=== PATIENT | female | born 1965 | race Caucasian/White ===

== ENCOUNTER → 2017-03-22 | Outpatient (CLI) | payer MEDICARE, OTHER ==
--- NOTE | 2017-03-22 11:11 | MM ---
Reason for exam: screening (asymptomatic). Baseline mammogram. History: Patient is postmenopausal. Physical Findings: Dr. Sutton did not find any significant physical abnormalities on exam. MG 3D Screening Mammo W/Cad Bilateral CC and MLO view(s) were taken. ML view(s) were taken of the left breast. The breast tissue is extremely dense which could obscure a lesion on mammography. Finding: There are indeterminate calcifications in the upper outer quadrant of the left breast. These results were verbally communicated with the patient and result sheet given to the patient on 03/22/17. ASSESSMENT: Suspicious, BI-RAD 4 RECOMMENDATION: Stereotactic core biopsy of the left breast. Called Dr. Sutton with mammographic findings and has scheduled an appointment for the patient for 04/20/17 at 9:[address] Angela. Biopsy scheduled 04/10/17 at 8:00. PRELIMINARY REPORT CALLED AND FAXED TO DR. ANGELA ON 03/22/17 AT 300/TMP.
--- NOTE | 2017-03-22 20:45 | WWHP ---
DATE OF DICTATION: 03/22/2017 CHIEF COMPLAINT: The patient is here for her routine gynecologic exam and mammogram. HISTORY OF PRESENT ILLNESS: This is a 51-year-old G0 with an LMP of 2015. The patient is here to establish with this office. She states her last Pap smear was probably in approximately 2009. It has been more than 7 years since her last mammogram. She states her periods were regular until age 32. She states she went 18 years with amenorrhea. Her periods resumed in approximately 2009, and they were somewhat irregular but they stopped in 2014. She denies any postmenopausal bleeding or periods since then. She has been having hot flashes for the past few years, but these seem to have improved. She saw her it auditor, who says she is considered menopausal. PAST MEDICAL HISTORY: 1. Hypoparathyroidism. 2. Chronic kidney disease. 3. Chronic hypertension. 4. Calcium deposits on the brain. 5. Eczema. 6. Rheumatoid arthritis. 7. COPD. 8. Seasonal allergies. 9. Depression. 10. Pre-diabetes. 11. She had a DVT and PE in 2000. MEDICATIONS: The patient does not know the exact doses of her medications. 1. Hydrochlorothiazide 1 daily. 2. Methotrexate 1 daily. 3. Nifedipine 1 daily. 4. Carvedilol b.i.d. 5. Effexor 1 daily. 6. Prozac 1 daily. 7. Xanax p.r.n. 8. Serevent daily. 9. Calcitriol daily. 10. Coumadin 1 daily. 11. Gabapentin q.i.d. 12. Celebrex b.i.d. ALLERGIES: MACROBID, which caused projectile vomiting and diarrhea. PAST SURGICAL HISTORY: 1. Ankle surgery. 2. Knee surgery. 3. Rotator cuff surgery. 4. Biopsy of the vocal cord which was benign. 5. Nasal septum surgery. 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 She did have Chlamydia in 2008, which was treated. She denies any other STDs. SOCIAL HISTORY: She admits to smoking 1 pack of cigarettes per day and has 0 to 6 alcoholic drinks per month. She previously used marijuana but denies any other drug use. She states she currently is no longer using marijuana. She is . She is currently not seeing anybody at this time. She has had 3 sexual partners in the last 2 years. She is considered disabled. FAMILY HISTORY: Diabetes in both parents. Heart disease in her father. Grandmother had bladder cancer. REVIEW OF SYSTEMS: She thinks she has gained about 20 pounds over the last year. She denies respiratory, cardiac or GI problems. PHYSICAL EXAM: Blood pressure 139/98. Height 5 feet 2 inches. Weight 218 pounds. Temperature 96.5. Pulse 99. This is a well-developed, heavyset white female who is alert and oriented x3, in no acute distress. HEENT is within normal limits. NECK: Supple without mass or thyromegaly. CHEST AND LUNGS: Inspiratory rhonchi scattered throughout and prolonged expiration consistent with POD. There are no discrete wheezes. HEART: Regular rate and rhythm. Breasts are without mass or discharge. Axillary exam is negative for adenopathy. BACK: Negative for CVA tenderness. ABDOMEN: Obese, soft, nontender, without palpable masses. PELVIC EXAM: External genitalia reveal mild atrophy without lesions. Cervix and vagina reveal mild atrophy without lesions. The cervix is nulliparous and somewhat stenotic. There is no evidence of prolapse. The uterus is midposition, nongravid size and nontender. There are no palpable adnexal masses or tenderness. Rectovaginal exam is negative for mass or tenderness and is negative for occult blood. EXTREMITIES: Nontender. IMPRESSION: 1. A 51-year-old menopausal female with normal gynecologic exam. 2. Multiple medical problems. PLAN: 1. Pap smear was performed. 2. Self breast examination was discussed. 3. Mammogram will be done today. 4. We have had a long discussion regarding STDs and STD prevention. I stressed the importance of limiting sexual partners and using condoms if she is sexually active. 5. GC and Chlamydia screening was obtained from the cervix. 6. Blood STD testing will be obtained. This will include HIV, RPR, hepatitis B surface antigen and hepatitis C antibody. 7. I have recommended that she try to quit smoking. 8. She will return in one year.
== END | disposition home or self-care (01) ==
LOC: WWCWWP 08:36
PROVIDERS: ATTEND Obstetrics & Gynecology
DX: Z12.31 Encounter for screening mammogram for malignant neoplasm of breast (principal)
CPT/HCPCS: 87491; 77063; G0202

== ENCOUNTER → 2017-04-11 | Outpatient (CLI) | payer MEDICARE, OTHER ==
--- NOTE | 2017-04-13 15:59 | PN ---
This is a 51-year-old female patient who is coming to see me in followup regarding her YUNIEL treatment. The patient was diagnosed having severe YUNIEL with an AHI of 62.9, and she also demonstrated severe nocturnal oxygen desaturation. The patient suffers from chronic hypersomnia and sleepiness. Based on that, the patient was given an AutoCPAP unit with a minimum pressure of 10, maximum pressure of 18, with an EPR of 3, along with a small-sized Simplus full-face mask. On today's followup, the patient reports marked improvement in her sleep quality. She tells me that she is unable to sleep without her CPAP machine at all. Unfortunately recently she was on a trip to [place] and she was staying with some friends and she did not a spot where she could put her CPAP, and her compliancy data has gotten worse since then. Clinically she also became much more somnolent and sleepy. As she is back in [place], she seems to be much more committed to go back on her CPAP therapy on a regular basis. I checked her current CPAP compliancy data, and the data over the past 60 days indicated that the patient has used the CPAP for more than ( ) hours almost half of the time. Her leak factor is around 31 L. Her P90 pressure is at 15. Her AHI while on treatment is down to less than 5. As such, this was a successful treatment. She has been averaging around 4.2 hours of CPAP use every night. As mentioned, while on treatment she has been much more alert and awake. BP is 150/99, pulse 80, respirations 20. Weight is 216. Saturation is 95% on room air. GENERAL APPEARANCE: Calm, comfortable. HEENT: Mallampati class 4. There is no goiter or neck masses. LUNGS: Clear to auscultation. Heart sounds are regular rate and rhythm. Normal S1, S2. No S3, S4. No murmurs. Abdomen is soft, non-tender. No organomegaly. EXTREMITIES: No edema. No cyanosis or clubbing. IMPRESSION: 1. Severe symptomatic obstructive sleep apnea with an AHI of 62.9. Current on AutoCPAP unit with a minimum pressure of 10, maximum of 18. Compliance data needs to improve further, yet the patient clinically is benefitting from the CPAP treatment. 2. Severe nocturnal oxygen desaturation, improved with CPAP therapy. 3. Chronic hypersomnia, improved. 4. Sleep fragmentation, improved. 5. Severe periodic limb movements. 6. Obesity. PLAN: 1. Encourage weight loss. 2. Encourage using the CPAP on a regular basis. Would like her to use it every night for more than 5 hours if possible. 3. Implement good sleep hygiene measures. 4. I noted that the patient is having increased leak around the mask, and I switched her to an AirFit P10 full-face mask. At the end of the encounter, the patient also reported some symptoms of bronchitis related to her COPD. She sees Dr. Kruse for that, and I ended up giving this patient a course of Z-Suman and a short course of prednisone burst/ taper, to be followed up later on in the pulmonary clinic. Will continue to follow. SHONDA
== END | disposition home or self-care (01) ==
LOC: SLEEP 14:53
PROVIDERS: ATTEND Internal Medicine Critical Care Medicine
DX: G47.33 Obstructive sleep apnea (adult) (pediatric) (principal); G47.10 Hypersomnia, unspecified; G47.61 Periodic limb movement disorder; E66.9 Obesity, unspecified

== ENCOUNTER → 2017-05-04 | Day surgery (SDC) | payer MEDICARE, OTHER ==
[2017-05-04 09:35] LABS: Prothrombin Time 10.4 sec (9.0-12.0)
[2017-05-04 10:15] VITALS: RESP 16; TEMP 97.8; BMI 39.4
[2017-05-04 11:24] VITALS: BP 129/89; PULSE 73
--- NOTE | 2017-05-04 13:34 | MM ---
Stereotactic Mammotome core biopsy left breast. HISTORY: Microcalcifications The calcifications in question within the left breast were targeted by the undersigned. Procedure wa s performed by the undersigned. Informed consent was obtained and all of the patients questions were answered. The standard sterile technique was utilized and appropriate local anesthesia was obtained with 1% licocaine. Mammotome probe was advanced and multiple core samples were obtained and sent to pathology for interpretation. Microclip marker was deployed at the site of biopsy. Post procedural mammogram demonstrates appropriate deployment of radiopaque clip marker. The patient tolerated the p rocedure well and left the department in stable condition. Pathology results are pending. IMPRESSION: Successful stereotactic core biopsy left breast with pathology results pending.
== END ==
LOC: RADMAMWWP 08:40
PROVIDERS: ATTEND Surgery
DX: R92.8 Other abnormal and inconclusive findings on diagnostic imaging of breast (principal); N60.92 Unspecified benign mammary dysplasia of left breast; N60.32 Fibrosclerosis of left breast; N60.02 Solitary cyst of left breast; N60.82 Other benign mammary dysplasias of left breast; N60.22 Fibroadenosis of left breast; N64.89 Other specified disorders of breast; Z88.0 Allergy status to penicillin; Z88.2 Allergy status to sulfonamides; Z91.09 Other allergy status, other than to drugs and biological substances
CPT/HCPCS: 88305; 85610; 85730; 19081; J2001

== ENCOUNTER → 2017-06-13 | Outpatient (CLI) | payer MEDICARE, OTHER ==
--- NOTE | 2017-06-14 06:22 | PN ---
Progress note from sleep center. This patient is 52 with severe YUNIEL and she had successful CPAP therapy with an automatic CPAP with minimal pressure of 10, maximum pressure of 18. Her baseline AHI was 62. I checked it in March of 2017 and I saw that her compliancy was adequate and the patient had to be switched to AirFit F10 full face mask. This did not happen and the mass was not delivered to her by [facility]. She is coming in for further advice. She is very much interested in full face mask other than the one that she is carrying right now which is a Simplus full face mask. Mask fit was done today and I fitted her to an AirFit F20 full face mask. She needs to go back on her CPAP use. BP 130/90, pulse rate 63, respirations 16, temperature 98.3, saturation 97% on room air. Weight is 222. GENERAL APPEARANCE: Calm, comfortable. HEENT: Crowding of posterior pharynx, Mallampati class 4. LUNGS: Clear to auscultation. HEART: Sounds regular rate and rhythm. Normal S1, S2. ABDOMEN: Soft, nontender. No organomegaly. EXTREMITIES: No edema. No cyanosis or clubbing. IMPRESSION: 1. Severe symptomatic obstructive sleep apnea with with an AHI of 62.9, still on auto CPAP unit with a minimum pressure of 10 and maximum pressure of 18. Needs to improve her compliance. Needs a better mask interface. 2. Chronic hypersomnia. 3. Sleep fragmentation. 4. Periodic limb movements. 5. Obesity. PLAN: 1. Encourage weight loss. 2. I gave the patient an AirFit F20 full face mask medium size. 3. See me back in a year's time, earlier if needed. SHONDA
== END | disposition home or self-care (01) ==
LOC: SLEEP 13:09
PROVIDERS: ATTEND Internal Medicine Critical Care Medicine
DX: G47.33 Obstructive sleep apnea (adult) (pediatric) (principal); G47.10 Hypersomnia, unspecified; G47.61 Periodic limb movement disorder; E66.9 Obesity, unspecified

== ENCOUNTER → 2017-11-21 | Outpatient (CLI) | payer MEDICARE, OTHER ==
--- NOTE | 2017-11-21 19:24 | PN ---
PROGRESS NOTE This 52-year-old female patient has severe obstructive sleep apnea. She is coming in to see me in followup. Her use of CPAP was suboptimal. I was encouraging and working with her closely to improve her compliancy. On today's evaluation she has not used her CPAP machine at all. She claims that she did not have a tube to connect with the mask and the DME refused to give her a tube. As such, there was no daily log documented over the past 3 months. The patient has not been using her CPAP. She is symptomatic knowing that she had an AHI of 62.9, and she is having sleep fragmentation along with chronic hypersomnia and sleepiness. Note that the patient was getting a good response with auto CPAP unit which is set at a minimum pressure of 10, maximum pressure of 18. As such, I was able to get this patient a tubing from my office and I donated to her the appropriate tubing to her for her to go back on her treatment. She has no other new complaints. Comorbidities remained unchanged. REVIEW OF SYSTEMS: Negative for morning headache. She has chronic fatigue and tiredness. She has not gained any weight. Appetite is good. No nausea, vomiting or diarrhea. Abdominal pain. No cough or sputum production, tightness or wheezing. No angina. No major swelling in the lower extremities. No active pain. No anxiety. No depression. No dysuria, frequency or urgency. No skin rashes. No wounds or ulcerations. PHYSICAL EXAMINATION: Her current vitals BP 139/93, pulse is 88, respirations 16, temperature 98.6, saturation 96% on room air. Marion score is 16, BMI is 41, and weight is 217, height is 5 feet 1 inch. General appearance, calm, comfortable not in acute distress. Head is atraumatic, normocephalic. NECK: Supple. There is no JVD. No goiter or neck masses. Mallampati class IV. LUNGS: Clear to auscultation. Diminished lung bases. HEART: Sounds are regular. Positive S1, S2. No S3, S4. No murmurs. ABDOMEN: Soft. No organomegaly. No direct tenderness, rebound or guarding. EXTREMITIES: No edema. No cyanosis or clubbing. NEUROLOGIC: Alert and oriented x3. No focal neurological deficits. Psychiatrically, the patient has appropriate mood and affect. SKIN: No wounds or ulcerations. IMPRESSION: 1. Severe obstructive sleep apnea AHI of 62, currently on auto CPAP with a minimum pressure of 10 and maximum pressure of 18. 2. Poor compliance with CPAP therapy for the reasons mentioned above. 3. Chronic hypersomnia. 4. Periodic limb movements. Severe. PLAN: 1. Provide appropriate tubing. 2. Educated on importance of CPAP use. 3. Will restart treatment on this patient again and see me back in 6 months' time for a followup in compliancy check. MMLORIEL / IJN: [id number] /
== END | disposition home or self-care (01) ==
LOC: SLEEP 13:48
PROVIDERS: ATTEND Internal Medicine Critical Care Medicine
DX: G47.33 Obstructive sleep apnea (adult) (pediatric) (principal); G47.10 Hypersomnia, unspecified; G47.61 Periodic limb movement disorder; Z99.89 Dependence on other enabling machines and devices

== ENCOUNTER → 2020-04-21 | Outpatient (CLI) | payer MEDICARE, OTHER ==
--- NOTE | 2020-04-21 13:32 | P.HPOB ---
History of Present Illness H&P Date: 04/21/20 Chief Complaint: The patient is here for routine gynecologic exam. This is a 54-year-old G0 with an LMP of 2015. The patient states she has noticed some lymph nodes in the groin area during the past 1 year. She states she hadn't noticed anything until she had a Doppler ultrasound for possible blood clots last year and she was told she has lymph nodes. Since then she has felt lymph nodes that vary in size. She states she has noticed them to be as large as quarter size in the past. She denies any pain associated with the lymph nodes. She is without gynecologic complaints and denies any postmenopausal bleeding. Review of Systems She has lost about 9 pounds over the past 3 years. She denies respiratory, cardiac, or GI problems. 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 pt state hx of DVT/PE 2001. hypoparathyroidism, Hx H1N1, FHARS, sleep apnea. Seasonal ALLERGIES and prediabetes. 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 History of Any Multi-Drug Resistant Organisms: None Reported Past Surgical History: Orthopedic Surgery Additional Past Surgical History / Comment(s): mult left foot and ankle surgery(fusion,ligament), left knee arthroscopy, left rotator cuff. Colonoscopy with upper endoscopy 2018(next after 10yr). Past Anesthesia/Blood Transfusion Reactions: Family History of Problems w/ Anesthesia, Motion Sickness Additional Past Anesthesia/Blood Transfusion Reaction / Comment(s): mother-PONV. states needed extra oxygen from previous surgeries due to asthma Past Psychological History: Anxiety Smoking Status: Current every day smoker (One pack per day) Past Alcohol Use History: Rare (6. Year) Additional Past Alcohol Use History / Comment(s): cutting down- has smoked since age 19, up to 1 PPD Past Drug Use History: Marijuana Additional Drug Use History / Comment(s): Marijuana use in the past but denies recent use. Additional History: The patient is and is not seeing anybody this time and has not been sexually active since 2017. She is disabled. - Past Family History Father Family Medical History: Cancer, Diabetes Mellitus Additional Family Medical History / Comment(s): Rafael Alicia. Grandmother had bladder cancer. Mother Family Medical History: Diabetes Mellitus, Deep Vein Thrombosis (DVT) Additional Family Medical History / Comment(s): Rafael Alicia Paternal uncle Family Medical History: Dementia Additional Family Medical History / Comment(s): Parkinson's disease. Medications and Allergies Home Medications Medication Instructions Recorded Confirmed Type ALPRAZolam [Xanax] 0.25 mg PO DAILY PRN 08/24/16 04/21/20 History Atorvastatin [Lipitor] 10 mg PO DAILY 08/24/16 04/21/20 History Calcium Carb-Vit D 500Mg-200Un 5 each PO QID 08/24/16 04/21/20 History [Oscal 500+D] Celecoxib [CeleBREX] 200 mg PO BID 08/24/16 04/21/20 History Gabapentin [Neurontin] 800 mg PO QID 08/24/16 04/21/20 History Magnesium Oxide [Magox 400] 400 mg PO BID 08/24/16 04/21/20 History Omeprazole 40 mg PO QAM 08/24/16 04/21/20 History Ondansetron HCl [Zofran] 4 mg PO Q8HR PRN 08/24/16 04/21/20 History Potassium Bicarbonate/Cit AC 50 meq PO QAM 08/24/16 04/21/20 History [Klor-Con 25 (Effer. Tab)] Tiotropium [place] [Spiriva 4 gm IH DAILY 08/24/16 04/21/20 History Respimat] Venlafaxine HCl [Effexor] 100 mg PO DAILY 08/24/16 04/21/20 History Warfarin Sodium [Coumadin] 7 mg PO DAILY 08/24/16 04/21/20 History Albuterol Sulfate [Proair 1 puff INHALATION DAILY 04/21/17 04/21/20 History Respiclick] Carbidopa 12.5 mg PO BID 04/21/17 04/21/20 History Hydrochlorothiazide [Hydrodiuril] 12.5 mg PO DAILY 04/21/17 04/21/20 History Lidocaine 5% Oint [Xylocaine 5% 1 applic TOPICAL DAILY PRN 04/21/20 04/21/20 History Oint] Allergies Allergy/AdvReac Type Severity Reaction Status Date / Time adhesive tape Allergy Itching, Verified 04/21/20 12:28 rash nitrofurantoin Allergy Diarrhea/vo Verified 04/21/20 12:28 [From Macrobid] miting Penicillins AdvReac Nausea & Verified 04/21/20 12:28 Vomiting Exam Vital Signs Temp Pulse Resp BP Pulse Ox 04/21/20 12:30 98.5 F 85 20 110/70 96 Intake and Output 04/20/20 04/21/20 04/21/20 22:59 06:59 14:59 Other: Weight 94.801 kg Height 5 feet 1-1/2 inches, weight 209 pounds, BMI 38.9. This is a well-developed well-nourished white female who is alert and oriented times 3 in no acute distress. HEENT: Within normal limits. NECK: Supple without mass or thyromegaly. CHEST AND LUNGS: Scattered rhonchi which clears with cough. Otherwise clear to auscultation. HEART: Regular rate and rhythm. BREASTS: Are without mass or discharge. AXILLARY EXAM: Negative for adenopathy. BACK: Negative for CVA tenderness. ABDOMEN: Soft, nontender, without palpable masses. Groin: There is no palpable lymphadenopathy. There are no masses. This area is normal to inspection. The groin area is nontender. PELVIC EXAM: Normal external genitalia with minimal atrophy. Cervix and vagina appear normal with mild atrophy. The cervix is small and nulliparous. There is no unusual discharge. There is no evidence of prolapse. The uterus is midposition, nongravid size and nontender. There are no palpable adnexal masses or tenderness. RECTAL EXAM: Rectovaginal exam is negative for mass or tenderness and is n egative for occult blood. EXTREMITIES: Nontender. IMPRESSION: 1. 54-year-old menopausal female with normal gynecologic exam. 2. The patient states she has palpated lymph nodes in the groin area over the past 1 year. No palpable inguinal or groin adenopathy at this time. PLAN: 1. Pap smear was performed. 2. Self breast awareness was discussed with the patient. 3. Evening mammogram is due and she states she has an appointment for this May of this year. She has an order slip from Dr. Angela, or breast surgeon. 4. STD prevention was discussed. I have recommended that she limit sexual partners and use condoms if she is sexually active. 5. Osteoporosis prevention was discussed. I have stressed the importance of adequate calcium, vitamin D and regular exercise. Recommended amounts of calcium and vitamin D were also discussed. 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 6. She was instructed to call if she is palpating lymph node enlargement. We have discussed how lymph nodes are present throughout the body and can sometimes normally be palpated and the areas such as axilla, groin, and neck. 7. I recommended that she quit smoking, and is not quit, and she is to cut back as much as possible. 8. She was advised to return in one year for her annual well woman exam.
[2020-04-21 16:31] VITALS: BP 110/70; PULSE 85; RESP 20; TEMP 98.5
--- NOTE | 2020-04-28 18:20 | P.PN ---
Progress Note - Text Progress Note Date: 04/28/20 OUTPATIENT FOLLOW-UP NOTE TEST(S)/RESULTS: Pap smear from 04/21/2020 was negative. METHOD OF NOTIFICATION: She was notified by phone. PATIENT COMMENTS: The patient has her mammogram scheduled for May of this year. DIAGNOSIS: Negative Pap smear DISCUSSION: PLAN: Mammogram to be done in May. She was advised to return in one year for her annual well woman exam.
== END | disposition home or self-care (01) ==
LOC: WWCWWP 12:04
PROVIDERS: ATTEND Obstetrics & Gynecology
DX: Z53.9 Procedure and treatment not carried out, unspecified reason (principal)

== ENCOUNTER 2021-06-27 15:10 | Emergency (ER) | payer MEDICARE, OTHER ==
[2021-06-27 15:39] VITALS: BP 140/100; PULSE 86; RESP 20; TEMP 98.2
--- NOTE | 2021-06-27 15:51 | XR ---
EXAMINATION TYPE: XR shoulder complete LT DATE OF EXAM: 06/27/2021 COMPARISON: NONE HISTORY: Left shoulder pain for 1.5 months after lifting injury TECHNIQUE: Frontal internal rotation, frontal external rotation, scapular Y views of the left shoulde r FINDINGS: No acute fracture or dislocation. Mild degenerative changes of the acromioclavicular and glenohumeral joints. Acromioclavicular and coracoclavicular distances are within normal limits. Soft tissues appe ar unremarkable. Partially visualized left lung appears clear. IMPRESSION: 1. No acute osseous abnormality. 2. Mild degenerative changes of the left shoulder.
--- NOTE | 2021-06-27 16:33 | ED ---
General Adult HPI - General Chief complaint: Extremity Injury, Upper Stated complaint: L shoulder pain Time Seen by Provider: 06/27/21 16:08 Source: patient, RN notes reviewed, old records reviewed Mode of arrival: ambulatory Limitations: no limitations - History of Present Illness Initial comments: Patient is a 56-year-old female with past medical history remarkable for asthma, COPD, hypertension, left rotator cuff surgery presents emergency Department after pain in her left shoulder for the last month. She was helping transfer family members at home and she has been experiencing intermittent left shoulder pain over the last month that she describes as achy and worse with movement. It is not improving which is why she presents emergency department for evaluation. She does have a history of left rotator cuff injury and repair. His surgery was done in [facility]. She presents today due to persistent pain. She has attempted to take Tylenol and Motrin at home without much improvement. She is able to move the left shoulder, however it is painful as she completes full abduction, full flexion, full extension. She denies any numbness or sensory deficits in the left upper extremity. Denies any weakness otherwise. She has no other acute injuries at this time, denying chest pain, shortness breath, fevers, chills, cough, abdominal pain. Patient presents for left shoulder evaluation. I evaluated the patient when she was placed in a room. - Related Data Home Medications Medication Instructions Recorded Confirmed ALPRAZolam [Xanax] 0.25 mg PO DAILY PRN 08/24/16 04/21/20 Atorvastatin [Lipitor] 10 mg PO DAILY 08/24/16 04/21/20 Calcium Carb-Vit D 500Mg-5Mcg 5 each PO QID 08/24/16 04/21/20 [Oscal 500+D] Celecoxib [CeleBREX] 200 mg PO BID 08/24/16 04/21/20 Gabapentin [Neurontin] 800 mg PO QID 08/24/16 04/21/20 Magnesium Oxide [Magox 400] 400 mg PO BID 08/24/16 04/21/20 Omeprazole 40 mg PO QAM 08/24/16 04/21/20 Ondansetron HCl [Zofran] 4 mg PO Q8HR PRN 08/24/16 04/21/20 Potassium Bicarbonate/Cit AC 50 meq PO QAM 11/09/16 07/07/20 [Klor-Con 25 (Effer. Tab)] Tiotropium [place] [Spiriva 4 gm IH DAILY 08/24/16 04/21/20 Respimat] Venlafaxine HCl [Effexor] 100 mg PO DAILY 08/24/16 04/21/20 Warfarin Sodium [Coumadin] 7 mg PO DAILY 08/24/16 04/21/20 Albuterol Sulfate [Proair 1 puff INHALATION DAILY 04/21/17 04/21/20 Respiclick] Carbidopa 12.5 mg PO BID 04/21/17 04/21/20 hydroCHLOROthiazide [Hydrodiuril] 12.5 mg PO DAILY 04/21/17 04/21/20 Lidocaine 5% Oint [Xylocaine 5% 1 applic TOPICAL DAILY PRN 04/21/20 04/21/20 Oint] Previous Rx's Medication Instructions Recorded Lidocaine 5% Patch [Lidoderm 5% 1 patch TOPICAL DAILY PRN 7 Days 06/27/21 Patch] #7 patch Allergies Allergy/AdvReac Type Severity Reaction Status Date / Time adhesive tape Allergy Itching, Verified 06/27/21 15:36 rash nitrofurantoin Allergy Diarrhea/vo Verified 06/27/21 15:36 [From Macrobid] miting Penicillins AdvReac Nausea & Verified 06/27/21 15:36 Vomiting Review of Systems ROS Statement: Those systems with pertinent positive or pertinent negative responses have been documented in the HPI. Review of Systems: CONST: Denies fever EYES: Denies blurry vision ENT: Denies nasal congestion C/V: Denies Chest pain RESP: Denies shortness of breath GI: Denies abdominal pain : Denies dysuria SKIN: Denies rash. MSK: Endorses left shoulder pain, acute on chronic NEURO: Denies headache ROS Other: All systems not noted in ROS Statement are negative. 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 pt state hx of DVT/PE 2001. hypoparathyroidism, Hx H1N1, FHARS, sleep apnea. Seasonal ALLERGIES and prediabetes. 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 History of Any Multi-Drug Resistant Organisms: None Reported Past Surgical History: Orthopedic Surgery Additional Past Surgical History / Comment(s): mult left foot and ankle surgery(fusion,ligament), left knee arthroscopy, left rotator cuff. Colonoscopy with upper endoscopy 2018(next after 10yr). Past Anesthesia/Blood Transfusion Reactions: Family History of Problems w/ Anesthesia, Motion Sickness Additional Past Anesthesia/Blood Transfusion Reaction / Comment(s): mother-PONV. states needed extra oxygen from previous surgeries due to asthma Past Psychological History: Anxiety Smoking Status: Current every day smoker Past Alcohol Use History: Rare Past Drug Use History: None Reported, Marijuana - Past Family History Father Family Medical History: Cancer, Diabetes Mellitus Additional Family Medical History / Comment(s): Rafael Alicia. Grandmother had bladder cancer. Mother Family Medical History: Diabetes Mellitus, Deep Vein Thrombosis (DVT) Additional Family Medical History / Comment(s): Rafael Alicia Paternal uncle Family Medical History: Dementia Additional Family Medical History / Comment(s): Parkinson's disease. General Exam - General Exam Comments Initial Comments: General: Appears in no acute distress. HEAD: Normal with no signs of head trauma. EYES: EOMI ENT: Hearing grossly intact RESPIRATORY:, Breath sounds bilaterally C/V: Peripheral pulses are 2+ and intact throughout. S1 and S2 auscultated. Regular rate and rhythm. ABD: Abdomen is nondistended. EXT: Patient is largely normal range of motion, however it is slightly reduced in the left shoulder secondary to pain in the left shoulder which is primarily over the superior aspect, and the deltoid muscle of the left shoulder. Patient also has some mild before meals joint tenderness palpation. No obvious deformities. She is neurovascularly intact in left upper extremity. SKIN: No rashes or lesions observed on exposed skin. NEURO: Alert and oriented 4. No focal sensory strength deficits. Limitations: no limitations Course Vital Signs 06/27/21 15:36 Temperature 98.2 F Pulse Rate 86 Respiratory 20 Rate Blood Pressure 140/100 O2 Sat by Pulse 97 Oximetry Medical Decision Making - Medical Decision Making Based on the patient's presentation and physical exam, I'm concerned for possible acute bony traumatic injury the patient's left shoulder, however this does appear to be her chronic pain she experiences with her left rotator cuff as it has been ongoing for 1 month. We will obtain a left shoulder x-ray. I did offer her analgesia which she refuses at this time. She was in agreement with this plan. I do not believe that she requires any further imaging or laboratory studies at this time. Patient's left shoulder x-ray revealed mild degenerative changes of the left shoulder with no acute nauseous abnormality. On reevaluation, I discussed with the patient the findings of her imaging. I believe it is safer to be discharged home with close follow-up with orthopedic surgery. She will follow up with her pcp for referral. She was in agreement this plan. She states she is Tylenol and Motrin at home. She is requesting a sling for comfort which I will provide at this time. Patient will therefore be discharged home. I will provide the patient with a prescription for lidocaine patches,. I instructed the patient to follow up with their PCP in the next 3 days. I explained that the patient should return to the emergency department if they experience any worsening symptoms. Strict return precautions were discussed with the patient. The patient expressed understanding of these instructions. I answered all questions that the patient had. The patient was discharged home in fair condition with their prescriptions and follow up information. Disposition Clinical Impression: Shoulder pain with history of repair of rotator cuff Disposition: HOME SELF-CARE Condition: Fair Instructions (If sedation given, give patient instructions): Shoulder Pain (ED) Prescriptions: Lidocaine 5% Patch [Lidoderm 5% Patch] 1 patch TOPICAL DAILY PRN 7 Days #7 patch PRN Reason: pain Is patient prescribed a controlled substance at d/c from ED?: No Referrals: Sherine Delcid MD [Primary Care Provider] - 1-2 days
== END 2021-06-27 16:48 | disposition home or self-care (01) ==
LOC: EC 15:10
DX: M25.512 Pain in left shoulder (principal); E78.5 Hyperlipidemia, unspecified; J44.9 Chronic obstructive pulmonary disease, unspecified; F41.9 Anxiety disorder, unspecified; I12.9 Hypertensive chronic kidney disease with stage 1 through stage 4 chronic kidney disease, or unspecified chronic kidney disease; N18.30 Chronic kidney disease, stage 3 unspecified; G40.909 Epilepsy, unspecified, not intractable, without status epilepticus; K21.9 Gastro-esophageal reflux disease without esophagitis; M06.9 Rheumatoid arthritis, unspecified; F17.200 Nicotine dependence, unspecified, uncomplicated; Z86.711 Personal history of pulmonary embolism; Z86.718 Personal history of other venous thrombosis and embolism; Z79.51 Long term (current) use of inhaled steroids; Z79.01 Long term (current) use of anticoagulants; Z79.1 Long term (current) use of non-steroidal anti-inflammatories (NSAID); Z88.0 Allergy status to penicillin; Z88.1 Allergy status to other antibiotic agents; Z98.890 Other specified postprocedural states
CPT/HCPCS: 99283

== ENCOUNTER 2023-09-27 11:01 | Emergency (ER) | payer MEDICARE, OTHER ==
--- NOTE | 2023-09-27 11:29 | ED ---
General Adult HPI - General Source: patient, RN notes reviewed Mode of arrival: ambulatory Limitations: no limitations <Viktoria Schneider - Last Filed: 09/27/23 11:27> - General Source: patient, RN notes reviewed Mode of arrival: ambulatory Limitations: no limitations <Jammie Hill - Last Filed: 09/28/23 06:19> - General Chief complaint: Extremity Injury, Lower Stated complaint: knot on side of left knee Time Seen by Provider: 09/27/23 11:27 - History of Present Illness Initial comments: 58 year old female presents to the emergency department for chief complaint of lump on the side of her left knee. She states that she noticed it this morning. She notes any redness, tenderness to the area (Viktoria Schneider) This is a 58-year-old female who presents to the emergency department for concerns of a lump on her left knee. Denies any injuries and states that he first noticed it this morning. It is not red or warm, and she states that it is not painful. She does note having arthritis in her knees and follows with orthopedics. (Jammie Hill) - Related Data Home Medications Medication Instructions Recorded Confirmed ALPRAZolam [Xanax] 0.25 mg PO DAILY PRN 08/24/16 04/21/20 Atorvastatin [Lipitor] 10 mg PO DAILY 08/24/16 04/21/20 Calcium Carb-Vit D 500Mg-5Mcg 5 each PO QID 08/24/16 04/21/20 [Oscal 500+D] Celecoxib [CeleBREX] 200 mg PO BID 08/24/16 04/21/20 Gabapentin [Neurontin] 800 mg PO QID 08/24/16 04/21/20 Magnesium Oxide [Magox 400] 400 mg PO BID 08/24/16 04/21/20 Omeprazole 40 mg PO QAM 08/24/16 04/21/20 Ondansetron HCl [Zofran] 4 mg PO Q8HR PRN 08/24/16 04/21/20 Potassium Bicarbonate/Cit AC 50 meq PO QAM 08/24/16 04/21/20 [Klor-Con 25 (Effer. Tab)] Tiotropium [place] [Spiriva 4 gm IH DAILY 08/24/16 04/21/20 Respimat] Venlafaxine HCl [Effexor] 100 mg PO DAILY 08/24/16 04/21/20 Warfarin Sodium [Coumadin] 7 mg PO DAILY 08/24/16 04/21/20 Albuterol Sulfate [Proair 1 puff INHALATION DAILY 04/21/17 04/21/20 Respiclick] Carbidopa 12.5 mg PO BID 04/21/17 04/21/20 hydroCHLOROthiazide [Hydrodiuril] 12.5 mg PO DAILY 04/21/17 04/21/20 Lidocaine 5% Oint [Xylocaine 5% 1 applic TOPICAL DAILY PRN 04/21/20 04/21/20 Oint] Previous Rx's Medication Instructions Recorded Lidocaine 5% Patch [Lidoderm 5% 1 patch TOPICAL DAILY PRN 7 Days 06/27/21 Patch] #7 patch Allergies Allergy/AdvReac Type Severity Reaction Status Date / Time adhesive tape Allergy Itching, Verified 09/27/23 11:18 rash nitrofurantoin Allergy Diarrhea/vo Verified 09/27/23 11:18 [From Macrobid] miting Penicillins AdvReac Nausea & Verified 09/27/23 11:18 Vomiting Review of Systems ROS Other: All systems not noted in ROS Statement are negative. <Viktoria Schneider - Last Filed: 09/27/23 11:27> ROS Other: All systems not noted in ROS Statement are negative. <Jammie Hill - Last Filed: 09/28/23 06:19> ROS Statement: Those systems with pertinent positive or pertinent negative responses have been documented in the HPI. 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 pt state hx of DVT/PE 2001. hypoparathyroidism, Hx H1N1, FHARS, sleep apnea. Seasonal ALLERGIES and prediabetes. 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 History of Any Multi-Drug Resistant Organisms: None Reported Past Surgical History: Orthopedic Surgery Additional Past Surgical History / Comment(s): mult left foot and ankle surgery(fusion,ligament), left knee arthroscopy, left rotator cuff. Colonoscopy with upper endoscopy 2018(next after 10yr). Past Anesthesia/Blood Transfusion Reactions: Family History of Problems w/ Anesthesia, Motion Sickness Additional Past Anesthesia/Blood Transfusion Reaction / Comment(s): mother-PONV. states needed extra oxygen from previous surgeries due to asthma Past Psychological History: Anxiety Smoking Status: Current every day smoker Past Alcohol Use History: Rare Past Drug Use History: None Reported, Marijuana - Past Family History Father Family Medical History: Cancer, Diabetes Mellitus Additional Family Medical History / Comment(s): Rafael Alicia. Grandmother had bladder cancer. Mother Family Medical History: Diabetes Mellitus, Deep Vein Thrombosis (DVT) Additional Family Medical History / Comment(s): Rafael Alicia Paternal uncle Family Medical History: Dementia Additional Family Medical History / Comment(s): Parkinson's disease. <Viktoria Schneider - Last Filed: 09/27/23 11:27> General Exam Limitations: no limitations <Viktoria Schneider - Last Filed: 09/27/23 11:27> Limitations: no limitations General appearance: alert, in no apparent distress Head exam: Present: atraumatic, normocephalic, normal inspection Respiratory exam: Present: normal lung sounds bilaterally. Absent: respiratory distress, wheezes, rales, rhonchi, stridor Cardiovascular Exam: Present: regular rate, normal rhythm, normal heart sounds. Absent: systolic murmur, diastolic murmur, rubs, gallop, clicks Extremities exam: Present: other (Nontender palpable lump to the lateral aspect of the left patella. No overlying skin changes.) Neurological exam: Present: alert, oriented X3, CN II-XII intact Psychiatric exam: Present: normal affect, normal mood Skin exam: Present: warm, dry, intact, normal color. Absent: rash <Jammie Hill - Last Filed: 09/28/23 06:19> - General Exam Comments Initial Comments: Visual Physical Exam Vital signs reviewed General: Well-appearing, nontoxic, no acute distress. Head: Normocephalic, atraumatic Eyes: PERRLA, EOMI ENT: Airway patent Chest: Nonlabored breathing Skin: No visual rash, normal skin tone Neuro: Alert and oriented 3 Musculoskeletal: No gross abnormalities (Viktoria Schneider) Course Vital Signs 09/27/23 09/27/23 11:15 12:56 Temperature 98.6 F 98.6 F Pulse Rate 89 82 Respiratory 18 16 Rate Blood Pressure 118/80 122/77 O2 Sat by Pulse 97 94 L Oximetry Medical Decision Making <Viktoria Schneider - Last Filed: 09/27/23 11:27> - Radiology Data Radiology results: report reviewed, image reviewed <Jammie Hill - Last Filed: 09/28/23 06:19> - Medical Decision Making Quick note preformed by Viktoria Schneider PA-C (Viktoria Schneider) This is a 58-year-old female who presents to the emergency department for a lump on her left knee. Was pt. sent in by a medical professional or institution? @ -No Did you speak to anyone other than the patient for history? @ -No Did you review nursing and triage notes? @ -Yes, and I agree, it is accurate with regards to the patient's symptoms. Were old charts reviewed? @ -No Differential Diagnosis? @ -Differential Knee Lump: Lipoma, DVT, hematoma, bursitis, Martin's cyst, this is not meant to be an all- inclusive list. EKG interpreted by me (3pts min.)? @ -Not obtained X-rays interpreted by me (1pt min.)? @ -Not obtained CT interpreted by me (1pt min.)? @ -Not obtained U/S interpreted by me (1pt. min.)? @ -US of the mass of the left lower extremity obtained. My interpretation identifies a fluid collection within the knee. What testing was considered but not performed? (CT, X-rays, U/S, labs)? Why? @ -None What meds were considered but not given? Why? @ -None Did you discuss the management of the patient with other professionals? @ -No Did you reconcile home meds? @ -No Was smoking cessation discussed for >3mins.? @ -No Was critical care preformed (if so, how long)? @ -No Were there social determinants of health that impacted care today? How? (Homelessness, low income, unemployed, alcoholism, drug addiction, tra nsportation, low edu. Level, literacy, decrease access to med. care, fci, rehab)? @ -No Was there de-escalation of care discussed even if they declined? (Discuss DNR or withdrawal of care, Hospice)? @ -No What co-morbidities impacted this encounter? (DM, HTN, Smoking, COPD, CAD, Cancer, CVA, Hep., AIDS, mental health diagnosis, sleep apnea, morbid obesity)? @ -Osteoarthritis, rheumatoid arthritis Was patient admitted / discharged? @ -Discharged. Ultrasound of the left knee mass was obtained. This demonstrated a complex fluid collection in the area of concern, and advised correlation for a hematoma or bursa. Findings reviewed with the patient. We discussed anti-inflammatories, compression, and elevation. Also advised to follow-up with her primary care provider or orthopedic provider for further evaluation. Undiagnosed new problem with uncertain prognosis? @ -None Drug Therapy requiring intensive monitoring for toxicity (Heparin, Nitro, Insulin, Cardizem)? @ -None Were any procedures done? @ -None Diagnosis/symptom? @ -Left knee mass Acute, or Chronic, or Acute on Chronic? @ -Acute Uncomplicated (without systemic symptoms) or Complicated (systemic symptoms)? @ -Uncomplicated Side effects of treatment? @ -None Exacerbation, Progression, or Severe Exacerbation] @ -Not applicable Poses a threat to life or bodily function? @ -No Return precautions reviewed in depth, the patient is instructed to return to the emergency department with any new, worsening, or concerning symptoms. Patient verbalized understanding. This case was discussed in detail with the attending ED physician, Dr. Berry. Presentation, findings, and treatment plan discussed in detail as well. (Jammie Hill) Disposition <Viktoria Schneider - Last Filed: 09/27/23 11:27> Is patient prescribed a controlled substance at d/c from ED?: No <Jammie Hill - Last Filed: 09/28/23 06:19> Clinical Impression: Mass of knee Disposition: HOME SELF-CARE Additional Instructions: Return to the emergency department with any new, worsening, or concerning symptoms. According to the ultrasound, this appears to be either a hematoma or bursal fluid collection. Apply warm compresses, you can use compression such as a knee brace or Triston bandage. Continue to take your Celebrex. Contact orthopedics for a follow-up appointment. Referrals: None,Stated [REFERRING] - 1-2 days Raad Redmond MD [Medical Doctor] - 1-2 days
[2023-09-27 11:31] VITALS: TEMP 98.6
--- NOTE | 2023-09-27 12:42 | US ---
EXAMINATION TYPE: US extremity nonvasc mass LT DATE OF EXAM: 09/27/2023 COMPARISON: NONE CLINICAL INDICATION: Female, 58 years old with history of left LE lump near knee; Hard palpable left lateral knee since yesterday TECHNIQUE: FINDINGS: Scanned within patient's area of concern, lateral to left knee, complex anechoic area = 5. 5 x 1.4 x 3.1cm. Correlate for hematoma. Complex fluid collection such as a bursa could be considered . IMPRESSION: Complex fluid collection in area of concern left lateral knee. Consider hematoma
[2023-09-27 13:14] VITALS: BP 122/77; PULSE 82; RESP 16
== END 2023-09-27 13:12 | disposition home or self-care (01) ==
LOC: EC 11:01
DX: R22.42 Localized swelling, mass and lump, left lower limb (principal); I10 Essential (primary) hypertension; J44.89 Other specified chronic obstructive pulmonary disease; K21.9 Gastro-esophageal reflux disease without esophagitis; M06.9 Rheumatoid arthritis, unspecified; M17.0 Bilateral primary osteoarthritis of knee; E78.5 Hyperlipidemia, unspecified; E07.9 Disorder of thyroid, unspecified; F41.9 Anxiety disorder, unspecified; F17.200 Nicotine dependence, unspecified, uncomplicated; F12.90 Cannabis use, unspecified, uncomplicated; Z86.718 Personal history of other venous thrombosis and embolism; Z88.0 Allergy status to penicillin; Z88.1 Allergy status to other antibiotic agents; Z88.8 Allergy status to other drugs, medicaments and biological substances; Z79.01 Long term (current) use of anticoagulants; Z79.899 Other long term (current) drug therapy
CPT/HCPCS: 99283